=== PATIENT | female | born 1970 | race Caucasian/White ===

== ENCOUNTER 2021-01-17 16:21 | Emergency (ER) | payer OTHER, SELFPAY ==
[2021-01-17] MEDS ORDERED: Ketorolac Tromethamine 30 MG/ML VIAL ONE (19:50)
[2021-01-17] MEDS ORDERED: HYDROcodone/Acetaminophen 5/325 mg Tablet ONE (19:51)
== END 2021-01-17 20:31 | disposition home or self-care (01) ==
LOC: CSHERS 16:21
DX: M25.462 Effusion, left knee (principal)
CPT/HCPCS: 96372; J1885